=== PATIENT | female | born 1960 | race Caucasian/White ===

== ENCOUNTER → 2022-03-03 | Outpatient (CLI) | payer BC ==
[2022-03-03 12:23] LABS: HEMATOCRIT 40.3 % (37.0-47.0); MEAN CELL VOLUME 90.8 fl (81.0-99.0); MEAN CORPUSCULAR HGB 29.3 pg (27.0-31.0); MEAN CORPUSCULAR HGB CONC 32.3 g/dl (33.0-37.0); MEAN PLATELET VOLUME 10.6 fl (9.6-12.3); PLATELET COUNT AUTOMATED 192 10*3/uL (130-400); RED BLOOD COUNT 4.44 10*6/uL (4.10-5.10); RED CELL DISTRI WIDTH 14.6 % (0-14.5); WHITE BLOOD COUNT 6.9 10*3/uL (4.8-10.8)
[2022-03-03 12:32] LABS: MANUAL DIFF REFLEX YES
[2022-03-03 13:29] LABS: ATYPICAL LYMPHS 1 % (0-0); BASOPHILS 1 % (0-1); PLATELET SUFFICIENCY NORMAL (NORMAL); TOTAL CELLS COUNTED 100 #CELLS
== END | disposition home or self-care (01) ==
LOC: LAB 12:01
PROVIDERS: ATTEND Internal Medicine
DX: A69.20 Lyme disease, unspecified (principal); R53.81 Other malaise; R70.0 Elevated erythrocyte sedimentation rate; R79.82 Elevated C-reactive protein (CRP)

== ENCOUNTER 2022-03-11 10:17 | Emergency (ER) | payer BC ==
[~2022-03-11] VITALS: Wt 86.2 kg
[2022-03-11] MEDS ORDERED: PREDNISONE10 MG PO (11:31)
== END 2022-03-11 11:32 | disposition home or self-care (01) ==
LOC: ED 10:17
DX: G51.0 Bell's palsy (principal)

== ENCOUNTER → 2022-03-25 | Outpatient (CLI) | payer BC ==
[~2022-03-25] MED LIST: PREDNISONE10 MG PO
== END | disposition home or self-care (01) ==
LOC: US 13:10
PROVIDERS: ATTEND Internal Medicine
DX: N28.89 Other specified disorders of kidney and ureter (principal); N28.1 Cyst of kidney, acquired

== ENCOUNTER → 2022-05-28 | Outpatient (CLI) | payer BC | LOC: CT 09:00 | PROVIDERS: ATTEND Internal Medicine | DX: N20.0 Calculus of kidney (principal); N28.1 Cyst of kidney, acquired; E27.8 Other specified disorders of adrenal gland ==

== ENCOUNTER → 2022-06-11 | Outpatient (CLI) | payer BC ==
[2022-06-12 08:08] LABS: RHEUMATOID FACTOR <10.0 IU/mL (<14.0)
[2022-06-14 13:06] LABS: ANTI-DSDNA ANTIBODIES 1 IU/mL (0-9)
[2022-06-16 00:06] LABS: CCP ANTIBODIES IGG/IGA 3 units (0-19)
== END | disposition home or self-care (01) ==
LOC: LAB 13:08
PROVIDERS: ATTEND Internal Medicine
DX: Z13.0 Encounter for screening for diseases of the blood and blood-forming organs and certain disorders involving the immune mechanism (principal); Z13.220 Encounter for screening for lipoid disorders; Z13.1 Encounter for screening for diabetes mellitus; Z13.21 Encounter for screening for nutritional disorder; Z13.228 Encounter for screening for other metabolic disorders; Z13.29 Encounter for screening for other suspected endocrine disorder; Z13.6 Encounter for screening for cardiovascular disorders; Z13.89 Encounter for screening for other disorder; Z13.9 Encounter for screening, unspecified; M06.9 Rheumatoid arthritis, unspecified; R76.8 Other specified abnormal immunological findings in serum; M05.59 Rheumatoid polyneuropathy with rheumatoid arthritis of multiple sites; R70.0 Elevated erythrocyte sedimentation rate; R79.82 Elevated C-reactive protein (CRP)

== ENCOUNTER → 2022-08-06 | Outpatient (CLI) | payer BC ==
[~2022-08-06] MED LIST changes: +CLONIDINE HCL0.1 MG PO; +HYDR25T PO; +LEVOTHYROXINE25 MCG PO; +LISINOPRIL20 MG PO; +TOPROL XL100 MG PO
== END | disposition home or self-care (01) ==
LOC: CARD 00:36
PROVIDERS: ATTEND Internal Medicine
DX: I11.9 Hypertensive heart disease without heart failure (principal); R07.9 Chest pain, unspecified

== ENCOUNTER → 2022-08-09 | Outpatient (CLI) | payer BC | END | disposition home or self-care (01) | LOC: CARD 03:40 | PROVIDERS: ATTEND Internal Medicine | DX: I11.9 Hypertensive heart disease without heart failure (principal) ==